=== PATIENT | male | born 1990 | race African-American/Black ===

== ENCOUNTER 2019-06-27 19:27 | Emergency (ER) | payer SELFPAY | END 2019-06-27 20:57 | disposition left against medical advice (07) | LOC: ER 19:27 | DX: R55 Syncope and collapse (principal); Z53.21 Procedure and treatment not carried out due to patient leaving prior to being seen by health care provider ==

== ENCOUNTER 2022-07-10 17:36 | Emergency (ER) | payer SELFPAY ==
[~2022-07-10] VITALS: Ht 172.7 cm; Wt 80.0 kg
[2022-07-10 17:50] VITALS: BP 171/100
[2022-07-10] MEDS ORDERED: ACYCLOVIR 400 MG TABLET PO ONE (20:15)
[2022-07-10 21:03] LABS: CLARITY URINE CLEAR (CLEAR); COLOR URINE YELLOW (YELLOW); KETONES URINE TRACE (NEGATIVE); LEUKOCYTE ESTERASE URINE NEGATIVE (NEGATIVE); NITRITE URINE NEGATIVE (NEGATIVE); OCCULT BLOOD URINE NEGATIVE (NEGATIVE); PH URINE 6.5 (4.5-8.0); PROTEIN URINE NEGATIVE (NEGATIVE); SPECIFIC GRAVITY URINE 1.024 (1.005-1.030)
[2022-07-10] MEDS ORDERED: ACYC200C31 MT (22:24)
== END 2022-07-10 22:47 | disposition home or self-care (01) ==
LOC: ER 17:36
DX: B00.9 Herpesviral infection, unspecified (principal); A64 Unspecified sexually transmitted disease
CPT/HCPCS: 81003; 86694; 86695; 86696; 87491; 87529; 87591; 99283